=== PATIENT | female | born 1970 | race Caucasian/White ===

== ENCOUNTER 2017-05-14 10:41 | Day surgery (SDC) | payer MEDICARE, OTHER ==
[2017-05-09 12:15] LABS: HEMATOCRIT 36.2 % (36.0-48.0)
[2017-05-09 12:35] LABS: CALCIUM, SERUM 9.4 MG/DL (8.5-10.4); CHLORIDE, SERUM 98 MMOL/L (96-112); CO2 (CARBON DIOXIDE) 29 MMOL/L (24-34); CREATININE 1.19 MG/DL (0.55-1.02); GFR AFRICAN AMERICAN 63 ML/MIN (>=60); GFR NON AFRICAN AMERICAN 54 ML/MIN (>=60); GLUCOSE, SERUM 103 MG/DL (60-99); SODIUM, SERUM 139 MMOL/L (135-148)
[2017-05-09 12:37] LABS: BUN (BLOOD UREA NITROGEN) 29 MG/DL (6-23); POTASSIUM, SERUM 4.2 MMOL/L (3.5-5.3)
--- NOTE | ~2017-05-14 | OP ---
Record Of Operation [facility] [address] [place]. [address] NAME: AVANI GARRIDO : 68 STATUS : [facility]#: [id number] AGE: 46 ADM/REG DATE : 05/14/17 MR#: [id number] REPORT SERV DATE: 05/15/17 DICTATED BY: NAHOMY SONG DATE: 05/15/17 REPORT STATUS : Draft TRANSCRIBED BY: MODL DATE: 05/15/17 DATE OF PROCEDURE: 05/14/2017 PREOPERATIVE DIAGNOSIS: Left knee chondromalacia of the patella. POSTOPERATIVE DIAGNOSIS: Left knee chondromalacia of the patella. PROCEDURE: Left knee arthroscopy, chondroplasty of the patella, stage III; femur, stage III. SCHOOL SUPERINTENDENT: See chart. PROCEDURE IN DETAIL: The patient was taken to the operating room and placed supine on the table in normal fashion without incident. General anesthetic was induced per the anesthesiologist. The patient was carefully positioned, padded, prepped, and draped in a normal sterile fashion. After prophylactic preoperative antibiotics, two standard arthroscopy ports were placed, medial one under direct visualization. A spinal needle examination of the knee revealed a chondromalacia stage III of the patella and adjacent femur that was debrided with a shaver and sealed with a contour-type device. The rest of the knee was carefully probed to make sure there were no further lesions. Before and after pictures were taken. Instruments were removed. The wounds were dressed sterilely. The patient was awakened and taken to the postanesthesia care unit without incident. COMPLICATIONS: None. SPECIMENS: None. ESTIMATED BLOOD LOSS: Trace. ANTOINETTE/ANALIA Jerry Song M.D. / [id number] CC: Carolina Beatty NP
[~2017-05-14 10:41] MED LIST: ACET500CAP PO; ADVAIR100 INH; ADVAIR250 INH; AMB10 PO; APRES25 PO; ASA5GR PO; ASAB PO; ASABAYER PO; ATROVENT HFA17 MCG INH; B-12; BUSPAR10 PO; BUSPAR15 M1 PO; C5 PO; CALTRA600D PO; CAT1 PO; CELEXA10 PO; COREG12 PO; COREG25 PO; COREG3 PO; COREG6 PO; CYMBALTA60 PO; DEMA100 PO; DEMA20 PO; DIL4TAB PO; DILAUDID8 MG PO; DUONEB INH; EFFEXOR100 MG PO; FERROUS SULF324 MG PO; FLEX PO; FLONASE NAS; FOLIC PO; GAS-X80 MG PO; GRALISE600 MG PO; HALF81 PO; HEMOCYTE324 MG PO; IPRA17AE INH; ISOSORB DIN30 MG PO; JANTOVEN6 MG PO; K-TABS10 MEQ PO; KAPIDEX60 MG PO; KCL20UDL PO; KDUR10 PO; KLOR-CON 1010 MEQ PO; KLOR-CON M1010 MEQ PO; KLOR-CON M2020 MEQ PO; L40 PO; LEVAQUIN5T PO; LEVAQUIN750 MG PO; LINZESS 290 M290 MCG PO; LIPITOR20 PO; LIPITOR40 PO; LOP25 PO; LORT7 PO; LYRICA150 MG PO; MAGOX4 PO; MAXIMUM D3 PO; MEDROLPAK4 PO; MEVACOR PO; MEVACOR40 MG PO; MICRO-K10 MEQ PO; MOMUD PO; MSCONT15 PO; MSCONT60 PO; MSCONTIN PO; MULTIVITAMI1 PO; NITROQUICK0.4 MG SL; NITROSTAT0.4 MG SL; NORV10 PO; NYS500UDL PO; OCEAN NAS; P10 PO; P20 PO; PAX20 PO; PAXIL30 MG PO; PHENADOZ25 MG PR; PLAVIX PO; PR12.5 PO; PR25 PO; PRIN10 PO; PRIN2.5 PO; PRIN5 PO; PROAIR HFA INH; PROZAC PO; PROZAC40 MG PO; PULRESP.5 INH; RANEXA1000 MG PO; SEROQUEL XR300 MG PO; SEROQUEL300 MG PO; SPIRIVA INH; SPIRO25 PO; STEROID INJECTION IM; SYMBICORT 160/41 INH INH; SYMBICORT 80/4.1 INH INH; TOPAMAX25 PO; X5 PO; XANAX1 MG; XANAX1 MG PO; XARELTO20 MG PO; Z5 PO; ZANAFLEX 4 MG TA4 MG PO; ZANTAC 150 PO; ZANTAC150 MG PO; ZESTRIL10 MG PO
[2017-06-18] MEDS ORDERED: EFFEXOR XR150 MG PO (13:13)
[2017-06-18] MEDS ORDERED: SUCR PO (13:14)
[2017-06-18] MEDS ORDERED: NTG150 SL (13:15)
[2017-06-18] MEDS ORDERED: BENTYL20 PO (13:15)
[2017-06-18] MEDS ORDERED: LINZESS 290 M290 MCG PO (13:16)
== END 2017-05-14 20:38 | disposition home or self-care (01) ==
LOC: SDC 10:41
PROVIDERS: Specialist
PROC: 0SBD4ZZ Excision of Left Knee Joint, Percutaneous Endoscopic Approach (ICD-10-PCS; principal; 2017-05-14 12:15)
DX: M22.42 Chondromalacia patellae, left knee (principal); M65.862 Other synovitis and tenosynovitis, left lower leg; J44.9 Chronic obstructive pulmonary disease, unspecified; D64.9 Anemia, unspecified; F41.9 Anxiety disorder, unspecified; E78.00 Pure hypercholesterolemia, unspecified; G43.909 Migraine, unspecified, not intractable, without status migrainosus; M81.0 Age-related osteoporosis without current pathological fracture; K21.9 Gastro-esophageal reflux disease without esophagitis; E66.01 Morbid (severe) obesity due to excess calories; F31.9 Bipolar disorder, unspecified; M79.7 Fibromyalgia; I12.9 Hypertensive chronic kidney disease with stage 1 through stage 4 chronic kidney disease, or unspecified chronic kidney disease; N18.9 Chronic kidney disease, unspecified; Z79.82 Long term (current) use of aspirin; Z79.899 Other long term (current) drug therapy; Z79.891 Long term (current) use of opiate analgesic; Z88.5 Allergy status to narcotic agent; Z91.040 Latex allergy status; Z88.0 Allergy status to penicillin; Z88.8 Allergy status to other drugs, medicaments and biological substances; Z86.73 Personal history of transient ischemic attack (TIA), and cerebral infarction without residual deficits; Z95.1 Presence of aortocoronary bypass graft; Z98.890 Other specified postprocedural states; Z82.49 Family history of ischemic heart disease and other diseases of the circulatory system; Z83.3 Family history of diabetes mellitus; Z87.891 Personal history of nicotine dependence; Z68.39 Body mass index [BMI] 39.0-39.9, adult
CPT/HCPCS: 80048; 82962; 85014; 85018; 88304; 93005; A9270-GY; J1170; J2250; J2274; J2405; J2550; J3010; J3370